=== PATIENT | male | born 1950 | race Hispanic/Latino ===

== ENCOUNTER 2016-10-02 16:10 | Emergency (ER) | payer SELFPAY ==
--- NOTE | 2016-10-02 16:27 | ED PDOC ---
Arrival/HPI - General Chief Complaint: Abnormal Skin Integrity Time Seen by Provider: 10/02/16 16:13 Historian: Patient - History of Present Illness Narrative History of Present Illness (Text): 10/02/16 16:24 65 y/o male, pmh including dm, nkda, c/o rt. facial insect bite and itching x 2 days. Itching, admits redness, no fever or chills, no pain, no numbness or tingling, no dizziness, no change in vision, no difficulty swallowing, no other medical or psychological complaints. Past Medical History - Provider Review Nursing Documentation Reviewed: Yes - Infectious Disease Hx of Infectious Diseases: None - Endocrine/Metabolic Hx Diabetes Mellitus Type 2: Yes - Psychiatric Hx Substance Use: No - Surgical History Other/Comment: right miniscus repair, neck sx - Anesthesia Hx Anesthesia: Yes Hx Anesthesia Reactions: No Hx Malignant Hyperthermia: No Family/Social History - Physician Review Nursing Documentation Reviewed: Yes Family/Social History: Unknown Family HX Smoking Status: Never Smoked Hx Alcohol Use: No Hx Substance Use: No Allergies/Home Meds Home Medications: Home Meds Medication Instructions Recorded Confirmed Acarbose [Acarbose] 1 tab PO BID 10/02/16 10/02/16 Glipizide [Glucotrol] 5 mg PO DAILY 10/02/16 10/02/16 Review of Systems - Review of Systems Constitutional: absent: Fatigue, Fevers Eyes: absent: Vision Changes ENT: absent: Hearing Changes Respiratory: absent: SOB, Cough Cardiovascular: absent: Chest Pain Gastrointestinal: absent: Abdominal Pain, Diarrhea, Nausea, Vomiting Skin: Rash, Pruritis, Skin Lesions. absent: Laceration, Abscess, Ulcer, Cellulitis Neurological: absent: Headache, Dizziness, Speech Changes, Facial Droop Psychiatric: absent: Anxiety, Depression, Suicidal Ideation Physical Exam Vital Signs Reviewed: Yes Vital Signs Temp Pulse Resp BP Pulse Ox 10/02/16 16:18 98.8 F 87 19 109/66 98 Temperature: Afebrile Blood Pressure: Normal Pulse: Regular Respiratory Rate: Normal Appearance: Positive for: Well-Appearing, Non-Toxic, Comfortable Pain Distress: Mild Mental Status: Positive for: Alert and Oriented X 3 - Systems Exam Head: Present: Atraumatic, Normocephalic Pupils: Present: PERRL Extroacular Muscles: Present: EOMI Conjunctiva: Present: Normal Mouth: Present: Moist Mucous Membranes Neck: Present: Normal Range of Motion Respiratory/Chest: Present: Clear to Auscultation, Good Air Exchange. No: Respiratory Distress, Accessory Muscle Use Cardiovascular: Present: Regular Rate and Rhythm, Normal S1, S2. No: Murmurs Abdomen: Present: Normal Bowel Sounds. No: Tenderness, Distention, Peritoneal Signs Back: Present: Normal Inspection Upper Extremity: Present: Normal Inspection. No: Cyanosis, Edema Lower Extremity: Present: Normal Inspection. No: Edema Neurological: Present: GCS=15, Speech Normal, Motor Func Grossly Intact, Gait Normal, Memory Normal Skin: Present: Warm, Dry, Rashes (Rt. sided facial cheek and rt. lateral temporal region visible erythematous and swelling with central insect bite albarado on these two lesions, mild warmth, no streaking, no ulcers, no central insect bite albarado, no bullseye or target signs, ), Normal Color Psychiatric: Present: Alert, Oriented x 3, Normal Insight, Normal Concentration Medical Decision Making ED Course and Treatment: 10/02/16 16:27 -Discharge home with augmentin, bactrim ds, zyrtec, topical steroid cream, avoid rubbing or touching the rash, follow up with your own pmd or return to the ER in 3 days for wound check, return to the ER sooner if you have any new or worsening signs or symptoms. - PA / [employer] / Resident Statement / has reviewed & agrees with the documentation as recorded. Disposition/Present on Arrival - Present on Arrival Any Indicators Present on Arrival: No History of DVT/PE: No History of Uncontrolled Diabetes: No Urinary Catheter: No History of Decub. Ulcer: No History Surgical Site Infection Following: None - Disposition Have Diagnosis and Disposition been Completed?: Yes Diagnosis: Insect bite, Localized skin mass, lump, or swelling Disposition: HOME/ ROUTINE Disposition Time: 16:28 Patient Plan: Discharge Condition: GOOD Additional Instructions: Discharge home with augmentin, bactrim ds, zyrtec, topical steroid cream, avoid rubbing or touching the rash, follow up with your own pmd or return to the ER in 3 days for wound check, return to the ER sooner if you have any new or worsening signs or symptoms. Prescriptions: Amoxicillin/Clavulanate [Augmentin 875 MG-125 MG] 1 tab PO BID #20 tab Cetirizine HCl [Zyrtec] 10 mg PO DAILY #10 capsule Sulfamethoxazole/Trimethoprim [Bactrim DS 800 mg-160 mg] 1 tab PO BID #20 tab Triamcinolone 0.025 % [Triamcinolone 0.025 % Cream] 1 appl TOP BID #15 g Referrals: [facility] [place] [Outside] - Follow up with primary Kiersten Turcios MD [Staff Provider] - Follow up with primary Forms: WORK NOTE
[2016-10-02] MEDS ORDERED: Tmp-Smz 800 mg-160 mg DS Tab PO STA (16:33)
[2016-10-02] MEDS ORDERED: Amoxicillin-Clav 875-125 mg Tab PO STA (16:33)
[2016-10-02 16:59] VITALS: BP 110/67; PULSE 75; RESP 20; TEMP 98; O2SAT 97
== END 2016-10-02 17:05 | disposition home or self-care (01) ==
LOC: ED 16:10
DX: S00.86XA Insect bite (nonvenomous) of other part of head, initial encounter (principal); W57.XXXA Bitten or stung by nonvenomous insect and other nonvenomous arthropods, initial encounter; Y93.89 Activity, other specified; Y92.89 Other specified places as the place of occurrence of the external cause